=== PATIENT | female | born 1975 | race Caucasian/White ===

== ENCOUNTER → 2016-05-23 | Outpatient (CLI) | payer OTHER ==
[2016-05-23 18:55] LABS: BASO % 0.3 %; BASO ABS # 0.03 K/uL (0-0.2); COMPLETE YES; EOS % 0.7 %; HEMATOCRIT 35.8 % (37-47); IG% 0.1 %; LYMPH % 27.4 %; LYMPH ABS # 2.93 K/uL (1.2-3.4); MEAN CELL VOLUME 84.8 fL (80-100); MEAN CORPUSCULAR HEMOGLOBIN 28.2 pg (25-34); MEAN CORPUSCULAR HGB CONC 33.2 g/dl (32-36); MEAN PLATELET VOLUME 11.5 fL (7.4-10.4); NEUT % 64.5 %; PLATELET COUNT 345 K/uL (130-400); RED BLOOD COUNT 4.22 M/uL (4.2-5.4); WHITE BLOOD COUNT 10.69 K/uL (4.8-10.8)
[2016-05-23 19:05] LABS: ALT/SGPT 19 U/L (12-78); BLOOD UREA NITROGEN 14 mg/dl (7-18); BUN/CREATININE RATIO 19.9 (10-20); CALCIUM 9.3 mg/dl (8.5-10.1); CARBON DIOXIDE 23 mmol/L (21-32); CHLORIDE 106 mmol/L (98-107); CHOLESTEROL 184 mg/dl (0-200); GLUCOSE 113 mg/dl (70-99); POTASSIUM 3.8 mmol/L (3.5-5.1); SODIUM 140 mmol/L (136-145)
[2016-05-23 19:08] LABS: ALB/GLOB RATIO 0.9 (0.9-2); ALKALINE PHOSPHATASE 67 U/L (45-117); AST/SGOT 16 U/L (15-37); CHOLESTEROL/HDL RATIO 4.5; HDL CHOLESTEROL 41 mg/dl; LDL CHOLESTEROL CALCULATED 111 mg/dl; TRIGLYCERIDES 158 mg/dl (0-150); VERY LOW DENSITY LIPOPROT CALC 32 mg/dl
[2016-05-24 06:21] LABS: ESTIMATED AVERAGE GLUCOSE 140 mg/dl; HA1C FLAG Normal (Normal)
== END | disposition home or self-care (01) ==
LOC: C.LABSPEC 10:58
PROVIDERS: ATTEND Family Medicine
DX: E11.9 Type 2 diabetes mellitus without complications (principal); R51 Headache; R10.13 Epigastric pain

== ENCOUNTER 2022-03-03 18:12 | Observation (INO) ==
[2022-03-03 19:39] LABS: Basophils % (auto) 0.7 %; Eosinophils # (auto) 0.07 K/uL (0-0.50); Eosinophils % (auto) 0.5 %; Hematocrit (blood only) 37.3 % (34.1-44.9); Hemoglobin 12.1 g/dl (12.0-16.0); Immature Granulocytes # (auto) 0.04 K/uL (0.00-0.02); Immature Granulocytes % (auto) 0.3 %; Lymphocytes # (auto) 3.28 K/uL (1.2-3.4); Lymphocytes % (auto) 23.5 %; Mean Corpuscular Hemoglobin 25.5 pg (25.0-34.0); Mean Corpuscular Hgb Conc 32.4 g/dL (32.0-36.0); Mean Corpuscular Volume 78.5 fL (80.0-100.0); Mean Platelet Volume 10.5 fL (9.4-12.3); Monocytes # (auto) 0.77 K/uL (0.24-0.82); Monocytes % (auto) 5.5 %; Neutrophils # (auto) 9.68 K/uL (1.4-6.5); Neutrophils % (auto) 69.5 %; Platelet Count 479 K/uL (130-400); RDW Coefficient of Variation 13.8 % (11.5-14.5); RDW Standard Deviation 39.2 fL (36.4-46.3); Red Blood Count 4.75 M/uL (3.93-5.22); White Blood Count 13.94 K/ul (4.8-10.8)
[2022-03-03 20:03] LABS: Albumin Globulin Ratio 1.1 (0.9-2); Albumin Level 4.4 gm/dl (3.4-5.0); BUN Creatinine Ratio 16.2 (10-20); Bilirubin,Total 0.3 mg/dl (0.2-1.0); Calcium 9.6 mg/dl (8.5-10.1); Creatinine Clr Calc Pharmacy 121.7 ml/min; Est GFR (African American) 122.4 ml/min; Est GFR (Non-African American) 105.6 ml/min; Globulin 3.9 gm/dl (2.5-4.0); Potassium 4.1 mmol/L (3.5-5.1); Total Protein 8.3 gm/dl (6.0-8.3)
[2022-03-03 20:06] LABS: Troponin I High Sensitivity 2.5 pg/ml (0-14)
[2022-03-03 20:17] LABS: Partial Thromboplastin Time 26.9 Seconds (21.0-31.0); Prothrombin Time 10.6 Seconds (9.0-12.0)
[2022-03-03] MEDS ORDERED: LABETALOL HCL IV 5 MG/ML 20ML IV STA (21:08)
--- NOTE | 2022-03-03 21:09 | Emergency Department Note ---
Impression & Plan Chest pain ADMIT ED Provider Note HPI: The patient is a 46-year-old female with history of type 2 diabetes, hypertension, hyperlipidemia, obesity, presents emergency department chief complaint of chest pain. Patient states that she has had intermittent left- sided chest pain throughout the day today that is atypical in nature, states it does not worsen with exertion. On arrival here to the ED the patient is hypertensive but otherwise in no acute distress on my initial evaluation, she is saturating well on room air ROS: -Cardio: Chest pain *10 point review systems was conducted and is otherwise negative unless stated above *Outpatient medications and allergy history reviewed PE: General: Alert, obese HEENT: Normocephalic, trachea midline Eyes: Extraocular eye movement is intact, no scleral erythema Pulmonary: Clear to auscultation bilaterally, no wheezing Cardio: Regular rate and rhythm GI: Abdomen is soft, nontender : No suprapubic tenderness MSK: No evidence of trauma or malformation of the extremities, no edema Skin: No evidence of rash Neuro: Alert, no focal deficits Psychiatric: Cooperative tenterer: - An order was placed for continuous cardiac monitoring - Patient was noted to be in sinus rhythm with a rate of 95 EKG: Rate: 102 Rhythm: Sinus tachycardia Intervals: Within normal limits ST changes: No ST elevation Time: 19:08 CTA CHEST: No pulmonary embolus. No aortic aneurysm or dissection. Interseptal thickening is concerning for pulmonary edema. No consolidation. The heart size is within normal limits. No pathologically enlarged lymph nodes. No fracture. Heterogeneous thyroid with presumed nodules measuring up to 1.7 cm. Recommend further evaluation with dedicated thyroid ultrasound on a nonemergent basis. Radiologist: Roxana Dominguez MD Interventions provided in ED: -IV labetalol, aspirin Medical Decision Making: Patient presented to the emergency department with a chief complaint of left- sided chest pain. On arrival here to the ED she is hypertensive but otherwise in no acute distress. Initial troponin is negative, EKG does not show any acute ischemic changes. CT angiography of the chest was obtained given the patient's chest pain and hypertension, this does not show any evidence of dissection or pulmonary embolism. On my reassessment the patient states her pain is improved, I discussed admission versus discharge with the patient and given her high risk profile including obesity, hypertension, hyperlipidemia, diabetes, and family history of heart disease, I do feel that she warrants admission for further management. Patient is in agreement. Case was discussed with the on-call hospitalist for [facility], Dr. Burnette, and the patient was admitted in stable condition for further care. Patient was given aspirin prior to admission. Diagnosis: 1. Chest pain, acute 2. Hypertension, established 3. Hyperglycemia in the setting of type 2 diabetes without DKA Disposition: Admission Dennis Jones DO Emergency Medicine Past Med/Surg History Medical History Dyslipidemia GERD (gastroesophageal reflux disease) Hypertension Type 2 diabetes mellitus Surgical History S/P cholecystectomy Family History Mother Diabetes Heart disease Hypertension Father Hypertension Myocardial infarction Brother Hypertension Heart disease Social History Smoking Status: Never smoker Preferred Language: Persian Feels Safe at Home: Yes Allergies Allergies Allergy/AdvReac Type Severity Reaction Status Date / Time Iodinated Contrast Media AdvReac Unknown Rash Verified 03/03/22 23:53 Home Meds Home Medications Medication Instructions Recorded Confirmed acetaminophen 500 mg tablet 1,000 mg PO Q6H PRN Fever Or Pain 11/25/19 03/03/22 albuterol sulfate 90 mcg/actuation 2 puffs inhalation Q4H PRN 11/25/19 03/03/22 aerosol inhaler (Ventolin HFA) Shortness Of Breath Or Wheezing atorvastatin 20 mg tablet 20 mg PO HS 11/25/19 03/03/22 lisinopril 20 mg tablet 20 mg PO QAM 11/25/19 03/03/22 menthol 4 % topical gel (Biofreeze 1 appln topical DAILY PRN Pain 11/25/19 03/03/22 (menthol)) omeprazole 40 mg capsule,delayed 40 mg PO QPM 11/25/19 03/03/22 release metformin 500 mg tablet,extended 1,000 mg PO BID 01/25/22 03/03/22 release 24 hr Previous Rx's Medication Instructions Recorded magnesium chloride 71.5 mg 71.5 mg PO BID #60 tabs 08/19/21 (magnesium chloride) tablet,delayed release (Slow-Mag) Results & Data (ED) Vital Signs Vital Signs - 24 hr 03/03/22 18:55 03/03/22 20:47 03/03/22 20:47 Temperature 36.5 C Temperature Source Temporal Artery Scan Pulse Rate 96 H Pulse Rate [Right Finger] 94 H Respiratory Rate 18 16 Respiratory Effort / Characteristics Respiratory Depth Normal Blood Pressure 149/91 H Blood Pressure [Right Arm] 194/117 H Blood Pressure Mean 110 Blood Pressure Mean [Right Arm] 142 Pulse Oximetry 100 97 Oxygen Delivery Method Room Air Room Air Room Air Sepsis New/Unexplained Change in Mental Status N/A Sepsis Action Taken by Nursing No Action Required Pulse Oximetry Post Tiitration 97 03/03/22 20:47 03/03/22 22:18 03/04/22 00:00 Temperature Temperature Source Pulse Rate Pulse Rate [Right Finger] 81 98 H Respiratory Rate 16 Respiratory Effort / Characteristics Non-Labored Respiratory Depth Normal Blood Pressure Blood Pressure [Right Arm] 182/125 H 156/110 H Blood Pressure Mean Blood Pressure Mean [Right Arm] 144 125 Pulse Oximetry 97 97 96 Oxygen Delivery Method Room Air Room Air Room Air Sepsis New/Unexplained Change in Mental Status Sepsis Action Taken by Nursing Pulse Oximetry Post Tiitration Laboratory Data Result diagrams: 03/03/22 19:08 03/03/22 19:08 Lab Results 03/03/22 03/03/22 03/03/22 Range/Units 19:08 19:08 19:08 WBC 13.94 H (4.8-10.8) K/ul RBC 4.75 (3.93-5.22) M/uL Hgb 12.1 (12.0-16.0) g/dl Hct 37.3 (34.1-44.9) % MCV 78.5 L (80.0-100.0) fL MCH 25.5 (25.0-34.0) pg MCHC 32.4 (32.0-36.0) g/dL RDW Std Deviation 39.2 (36.4-46.3) fL RDW Coeff of Brad 13.8 (11.5-14.5) % Plt Count 479 H (130-400) K/uL MPV 10.5 (9.4-12.3) fL Immature Gran % (Auto) 0.3 % Neut % (Auto) 69.5 % Lymph % (Auto) 23.5 % [place] % (Auto) 5.5 % Eos % (Auto) 0.5 % Baso % (Auto) 0.7 % Neut # (Auto) 9.68 H (1.4-6.5) K/uL Lymph # (Auto) 3.28 (1.2-3.4) K/uL [place] # (Auto) 0.77 (0.24-0.82) K/uL Eos # (Auto) 0.07 (0-0.50) K/uL Baso # (Auto) 0.10 (0-0.2) K/uL Immature Gran # (Auto) 0.04 H (0.00-0.02) K/uL PT 10.6 (9.0-12.0) Seconds INR 1.0 (0.9-1.1) APTT 26.9 (21.0-31.0) Seconds PTT Ratio 1.0 Sodium 134 L (136-145) mmol/L Potassium 4.1 (3.5-5.1) mmol/L Chloride 99 (98-107) mmol/L Carbon Dioxide 24 (21-32) mmol/L Anion Gap 11 (3-11) BUN 11 (6-23) mg/dl Creatinine 0.68 (0.6-1.2) mg/dl Est Cr Clr Drug Dosing 121.7 ml/min Est GFR ( Amer) 122.4 ml/min Est GFR (Non-Af Amer) 105.6 ml/min BUN/Creatinine Ratio 16.2 (10-20) Glucose 194 H (70-99(Fasting)) mg/dl Calcium 9.6 (8.5-10.1) mg/dl Total Bilirubin 0.3 (0.2-1.0) mg/dl AST 16 (13-39) U/L ALT 17 (7-52) U/L Alkaline Phosphatase 82 (34-104) U/L Troponin I High Sens 2.5 (0-14) pg/ml Total Protein 8.3 (6.0-8.3) gm/dl Albumin 4.4 (3.4-5.0) gm/dl Globulin 3.9 (2.5-4.0) gm/dl Albumin/Globulin Ratio 1.1 (0.9-2) SARS-CoV-2, RNA, NAAT (NEGATIVE) 03/03/22 Range/Units 23:53 WBC (4.8-10.8) K/ul RBC (3.93-5.22) M/uL Hgb (12.0-16.0) g/dl Hct (34.1-44.9) % MCV (80.0-100.0) fL MCH (25.0-34.0) pg MCHC (32.0-36.0) g/dL RDW Std Deviation (36.4-46.3) fL RDW Coeff of Brad (11.5-14.5) % Plt Count (130-400) K/uL MPV (9.4-12.3) fL Immature Gran % (Auto) % Neut % (Auto) % Lymph % (Auto) % [place] % (Auto) % Eos % (Auto) % Baso % (Auto) % Neut # (Auto) (1.4-6.5) K/uL Lymph # (Auto) (1.2-3.4) K/uL [place] # (Auto) (0.24-0.82) K/uL Eos # (Auto) (0-0.50) K/uL Baso # (Auto) (0-0.2) K/uL Immature Gran # (Auto) (0.00-0.02) K/uL PT (9.0-12.0) Seconds INR (0.9-1.1) APTT (21.0-31.0) Seconds PTT Ratio Sodium (136-145) mmol/L Potassium (3.5-5.1) mmol/L Chloride (98-107) mmol/L Carbon Dioxide (21-32) mmol/L Anion Gap (3-11) BUN (6-23) mg/dl Creatinine (0.6-1.2) mg/dl Est Cr Clr Drug Dosing ml/min Est GFR ( Amer) ml/min Est GFR (Non-Af Amer) ml/min BUN/Creatinine Ratio (10-20) Glucose (70-99(Fasting)) mg/dl Calcium (8.5-10.1) mg/dl Total Bilirubin (0.2-1.0) mg/dl AST (13-39) U/L ALT (7-52) U/L Alkaline Phosphatase (34-104) U/L Troponin I High Sens (0-14) pg/ml Total Protein (6.0-8.3) gm/dl Albumin (3.4-5.0) gm/dl Globulin (2.5-4.0) gm/dl Albumin/Globulin Ratio (0.9-2) SARS-CoV-2, RNA, NAAT NEGATIVE (NEGATIVE) Administered Medications Discontinued Medications Aspirin (Aspirin Chew 324 Mg) 324 mg PO NOW STA Stop: 03/03/22 23:23 Last Admin: 03/03/22 23:52 Dose: 324 mg Documented By: MUNIR Diphenhydramine HCl (Diphenhydramine 50 Mg/Ml Vial) 25 mg IV NOW STA Stop: 03/03/22 21:24 Last Admin: 03/03/22 21:29 Dose: 25 mg Documented By: PABLITO Ioversol (Optiray 320 500ml) 113 ml IV ONCE ONE Stop: 03/03/22 22:01 Last Admin: 03/03/22 22:01 Dose: 113 ml Documented By: IRVING Labetalol HCl (Labetalol Hcl Iv 5 Mg/Ml 20ml) 10 mg IV NOW STA Stop: 03/03/22 21:09 Last Admin: 03/03/22 21:12 Dose: 10 mg Documented By: PABLITO Co-signed By: AROLDO Lisinopril (Lisinopril 20 Mg Tab) 20 mg PO NOW STA Stop: 03/03/22 23:38 Last Admin: 03/04/22 00:05 Dose: 20 mg Documented By: MUNIR Methylprednisolone (Methylprednisolone 125 Mg/2 Ml Vial) 125 mg IV NOW STA Stop: 03/03/22 21:24 Last Admin: 03/03/22 21:29 Dose: 125 mg Documented By: PABLITO Discharge Plan Visit Data Chief Complaint: Cardiac Assessment Stated Complaint: CHEST PAIN AND PALPITATIONS ED Provider: Dennis Jones Discharge Problem: Chest pain Patient Disposition: Admitted As Inpatient Forms Stand Alone Forms: [facility] Prescriptions Prescriptions: No Action Slow-Mag 71.5 mg tablet,delayed release (DR/EC) 71.5 mg PO BID Qty: 60 5RF Biofreeze (menthol) 4 % gel 1 appln TOP DAILY PRN (Reason: Pain) lisinopril 20 mg tablet 20 mg PO QAM albuterol sulfate [Ventolin HFA] 90 mcg/actuation HFA aerosol inhaler 2 puffs INH Q4H PRN (Reason: Shortness Of Breath Or Wheezing) acetaminophen 500 mg tablet 1,000 mg PO Q6H PRN (Reason: Fever Or Pain) atorvastatin 20 mg tablet 20 mg PO HS omeprazole 40 mg capsule,delayed release(DR/EC) 40 mg PO QPM metformin 500 mg tablet extended release 24 hr 1,000 mg PO BID Referrals Referrals: Margarita Tsai DO [Primary Care Provider] -
[2022-03-03] MEDS ORDERED: diphenhydrAMINE 50 MG/ML VIAL IV STA (21:23)
[2022-03-03] MEDS ORDERED: methylPREDNISolone 125 MG/2 ML VIAL IV STA (21:23)
[2022-03-03] MEDS ORDERED: OPTIRAY 320 500ml IV ONE (22:00)
[2022-03-03] MEDS ORDERED: ASPIRIN CHEW 324 MG PO STA (23:22)
[2022-03-03] MEDS ORDERED: lisinopril 20 MG TAB PO STA (23:37)
[2022-03-04 00:29] LABS: Magnesium 1.3 mg/dl (1.7-2.4)
[2022-03-04 00:32] LABS: Troponin I High Sensitivity 2.5 pg/ml (0-14)
--- NOTE | 2022-03-04 01:19 | History & Physical Report ---
Date of Service March 04, 2022 Assessment & Plan (1) Chest pain: Plan: Possibly secondary to uncontrolled blood pressure hyperlipidemia, on statin Rx DM2 on oral medications, suboptimal control as of recent hemoglobin A1c of 9.3 last October 2021 pulmonary sarcoidosis, no recent outpatient specialist follow-up hx orthostatic hypotension as per records, symptoms not as troublesome of late as per patient Thyroid nodules on incidental finding on initial CT read OBS PCU Titrate home lisinopril Cardiology consult Re: Chest pain, uncontrolled BP (Patient known to [facility] Basal bolus insulin, ISS BG goal 1 10-1 40, carb count coverage Check TSH with a.m. labs, outpatient thyroid ultrasound for thyroid nodules DVT prophylaxis per Lovenox subcu Full code Text document was generated using Percolate voice recognition software. It may contain grammatical or spelling errors. Kindly contact undersigned for clarification of any documentation item in question. History of Present Illness Chief Complaint: Chest pain Primary Care Provider: Margarita Tsai DO History obtained from patient, family, and records. Medical history significant for hypertension, hyperlipidemia, DM2 on oral medications, sarcoidosis, orthostatic hypotension as per records, chronic left shoulder pain from chronic impingement syndrome. Yesterday, patient noted achy left-sided chest pain going to her left arm. No cough, some shortness of breath. Different from usual shoulder pain. Patient compliant with home medications. Does not check blood pressure at home. No headache symptoms. Chest pain improved after Aspirin administration. SBP noted to be 190s at some point during ER stay. Patient currently comfortable. Medical History as above Negative stress echo July 2020 Surgical History : Cholecystectomy Family History : Heart disease, DM, stroke Personal/Social history : Non-smoker, no EtOH intake, store employee Allergies Allergy/AdvReac Type Severity Reaction Status Date / Time Iodinated Contrast Media AdvReac Unknown Rash Verified 03/03/22 23:53 Home Medications Medication Instructions Recorded Confirmed Type acetaminophen 500 mg tablet 1,000 mg PO Q6H PRN Fever Or Pain 11/25/19 03/03/22 History albuterol sulfate 90 mcg/actuation 2 puffs inhalation Q4H PRN 11/25/19 03/03/22 History aerosol inhaler (Ventolin HFA) Shortness Of Breath Or Wheezing atorvastatin 20 mg tablet 20 mg PO HS 11/25/19 03/03/22 History lisinopril 20 mg tablet 20 mg PO QAM 11/25/19 03/03/22 History menthol 4 % topical gel (Biofreeze 1 appln topical DAILY PRN Pain 11/25/19 03/03/22 History (menthol)) omeprazole 40 mg capsule,delayed 40 mg PO QPM 11/25/19 03/03/22 History release magnesium chloride 71.5 mg 71.5 mg PO BID #60 tabs 08/19/21 03/03/22 Rx (magnesium chloride) tablet,delayed release (Slow-Mag) metformin 500 mg tablet,extended 1,000 mg PO BID 01/25/22 03/03/22 History release 24 hr Past Med/Surg History Medical History Dyslipidemia GERD (gastroesophageal reflux disease) Hypertension Type 2 diabetes mellitus Surgical History S/P cholecystectomy Family History Mother Diabetes Heart disease Hypertension Father Hypertension Myocardial infarction Brother Hypertension Heart disease Social History Smoking Status: Never smoker Hx Alcohol Use: No Hx Substance Use: No Preferred Language: Maltese Communication Ability: Effective Director Of Outpatient Services Required: No Beliefs That Will Affect Care: None Current Living Situation: Family Other Information That Helps Us Care for You: No Feels Safe at Home: Yes Safety Concerns: Feels Safe At This Time Assistive Devices: None Review of Systems Review of Systems: As per HPI, all other systems reviewed and negative Physical Exam Physical Exam: GENERAL: Slightly uncomfortable, morbidly obese, pleasant, no respiratory distress SKIN: Normal color, warm HEENT: [place] palpebral conjunctivae, no ptosis, dry buccal mucosa NECK : Supple, short neck, no tenderness CHEST : CTA, no tenderness HEART : RRR, no obvious murmurs ABDOMEN: Some distention, nontender EXTREMITIES : No LE swelling/tenderness, chronic left shoulder tenderness NEUROLOGIC : Coherent, no facial asymmetry, no other gross focality Results & Data Results & Data ([facility]) Vital Signs (Past 12 Hours) Vital Signs Temp Pulse Pulse Resp BP BP Pulse Ox 03/04/22 00:00 98 H 16 156/110 H 96 03/03/22 22:18 81 182/125 H 97 03/03/22 20:47 97 03/03/22 20:47 94 H 16 194/117 H 97 03/03/22 20:47 03/03/22 18:55 36.5 C 96 H 18 149/91 H 100 O2 Del Method 03/04/22 00:00 Room Air 03/03/22 22:18 Room Air 03/03/22 20:47 Room Air 03/03/22 20:47 Room Air 03/03/22 20:47 Room Air 03/03/22 18:55 Room Air Laboratory Results Laboratory Results WBC 13.94 K/ul (4.8-10.8) H 03/03/22 19:08 RBC 4.75 M/uL (3.93-5.22) 03/03/22 19:08 Hgb 12.1 g/dl (12.0-16.0) 03/03/22 19:08 Hct 37.3 % (34.1-44.9) 03/03/22 19:08 MCV 78.5 fL (80.0-100.0) L 03/03/22 19:08 MCH 25.5 pg (25.0-34.0) 03/03/22 19:08 MCHC 32.4 g/dL (32.0-36.0) 03/03/22 19:08 RDW Std Deviation 39.2 fL (36.4-46.3) 03/03/22 19:08 RDW Coeff of Brad 13.8 % (11.5-14.5) 03/03/22 19:08 Plt Count 479 K/uL (130-400) H 03/03/22 19:08 MPV 10.5 fL (9.4-12.3) 03/03/22 19:08 Immature Gran % (Auto) 0.3 % 03/03/22 19:08 Neut % (Auto) 69.5 % 03/03/22 19:08 Lymph % (Auto) 23.5 % 03/03/22 19:08 [place] % (Auto) 5.5 % 03/03/22 19:08 Eos % (Auto) 0.5 % 03/03/22 19:08 Baso % (Auto) 0.7 % 03/03/22 19:08 Neut # (Auto) 9.68 K/uL (1.4-6.5) H 03/03/22 19:08 Lymph # (Auto) 3.28 K/uL (1.2-3.4) 03/03/22 19:08 [place] # (Auto) 0.77 K/uL (0.24-0.82) 03/03/22 19:08 Eos # (Auto) 0.07 K/uL (0-0.50) 03/03/22 19:08 Baso # (Auto) 0.10 K/uL (0-0.2) 03/03/22 19:08 Immature Gran # (Auto) 0.04 K/uL (0.00-0.02) H 03/03/22 19:08 PT 10.6 Seconds (9.0-12.0) 03/03/22 19:08 INR 1.0 (0.9-1.1) 03/03/22 19:08 APTT 26.9 Seconds (21.0-31.0) 03/03/22 19:08 PTT Ratio 1.0 03/03/22 19:08 Sodium 134 mmol/L (136-145) L 03/03/22 19:08 Potassium 4.1 mmol/L (3.5-5.1) 03/03/22 19:08 Chloride 99 mmol/L (98-107) 03/03/22 19:08 Carbon Dioxide 24 mmol/L (21-32) 03/03/22 19:08 Anion Gap 11 (3-11) 03/03/22 19:08 BUN 11 mg/dl (6-23) 03/03/22 19:08 Creatinine 0.68 mg/dl (0.6-1.2) 03/03/22 19:08 Est Cr Clr Drug Dosing 121.7 ml/min 03/03/22 19:08 Est GFR ( Amer) 122.4 ml/min 03/03/22 19:08 Est GFR (Non-Af Amer) 105.6 ml/min 03/03/22 19:08 BUN/Creatinine Ratio 16.2 (10-20) 03/03/22 19:08 Glucose 194 mg/dl (70-99(Fasting)) H 03/03/22 19:08 Calcium 9.6 mg/dl (8.5-10.1) 03/03/22 19:08 Magnesium 1.3 mg/dl (1.7-2.4) L 03/03/22 23:54 Total Bilirubin 0.3 mg/dl (0.2-1.0) 03/03/22 19:08 AST 16 U/L (13-39) 03/03/22 19:08 ALT 17 U/L (7-52) 03/03/22 19:08 Alkaline Phosphatase 82 U/L (34-104) 03/03/22 19:08 Troponin I High Sens 2.5 pg/ml (0-14) 03/03/22 23:54 Total Protein 8.3 gm/dl (6.0-8.3) 03/03/22 19:08 Albumin 4.4 gm/dl (3.4-5.0) 03/03/22 19:08 Globulin 3.9 gm/dl (2.5-4.0) 03/03/22 19:08 Albumin/Globulin Ratio 1.1 (0.9-2) 03/03/22 19:08 SARS-CoV-2, RNA, NAAT NEGATIVE (NEGATIVE) 03/03/22 23:[address] chest initial read: No pulmonaryembolus. No aortic aneurysmor dissection. Interseptal thickening is concerning for pulmonaryedema. No consolidation. The heart size iswithin normal limits. No pathologicallyenlarged lymph nodes. No fracture. Heterogeneous thyroid with presumed nodules measuring up to 1.7 cm. Recommend further evaluation with dedicated thyroid ultrasound on a nonemergent basis EKG as per my interpretation : Rate 105, sinus tachycardia, normal axis, no ischemia (1) Chest pain Chest pain type: unspecified Qualified Code(s): R07.9 - Chest pain, unspecified
[2022-03-04] MEDS ORDERED: SODIUM CHLORIDE 0.9% 1000ML 1,000 ML IV STA (01:26)
[2022-03-04] MEDS: MAGNESIUM SULFATE / D5W 1 GM/100 ML BAG IV SCH ×2 (02:05→04:00)
[2022-03-04] MEDS ORDERED: LORazepam 0.5 MG TAB PO PRN (03:03)
[2022-03-04] MEDS ORDERED: LANTUS PER UNIT CHARGE SQ SCH ×3 (03:03→05:45)
[2022-03-04] MEDS ORDERED: GLUCAGON FOR INJ 1 MG VIAL SQ PRN (03:03)
[2022-03-04] MEDS ORDERED: CARBOHYDRATES FOR HYPOGLYCEMIA PO PRN (03:03)
[2022-03-04] MEDS ORDERED: ACETAMINOPHEN 325 MG TAB PO PRN (03:03)
[2022-03-04] MEDS ORDERED: DEXTROSE 50% 50 ML SYRINGE IV PRN (03:03)
[2022-03-04] MEDS ORDERED: MoRPHine SULFATE 4 MG/ML 1 ML CARP\\VIAL IV PRN (03:03)
[2022-03-04] MEDS ORDERED: traMADol HCL 50 MG TABLET PO PRN (03:03)
[2022-03-04] MEDS ORDERED: PROMETHAZINE HCL 12.5 MG in SODIUM CHLORIDE 0.9% 50 ML IV PRN (03:03)
[2022-03-04] MEDS ORDERED: NITROGLYCERIN SL 0.4 MG/TAB TAB SL PRN (03:03)
[2022-03-04] MEDS ORDERED: GLUCOSE 40% GEL 15 GM TUBE PO PRN (03:03)
[2022-03-04] MEDS ORDERED: GLUCOSE 10 TAB/TUBE PO PRN (03:03)
[2022-03-04] MEDS: INSULIN ASPART PER UNIT SC SCH ×3 (03:54→12:11)
[2022-03-04 06:09] LABS: Basophils # (auto) 0.03 K/uL (0-0.2); Basophils % (auto) 0.2 %; Hematocrit (blood only) 36.9 % (34.1-44.9); Hemoglobin 11.9 g/dl (12.0-16.0); Immature Granulocytes # (auto) 0.07 K/uL (0.00-0.02); Immature Granulocytes % (auto) 0.5 %; Lymphocytes # (auto) 1.33 K/uL (1.2-3.4); Lymphocytes % (auto) 9.1 %; Mean Corpuscular Hemoglobin 25.6 pg (25.0-34.0); Mean Corpuscular Hgb Conc 32.2 g/dL (32.0-36.0); Mean Corpuscular Volume 79.5 fL (80.0-100.0); Mean Platelet Volume 10.5 fL (9.4-12.3); Monocytes # (auto) 0.07 K/uL (0.24-0.82); Monocytes % (auto) 0.5 %; Neutrophils # (auto) 13.18 K/uL (1.4-6.5); Neutrophils % (auto) 89.7 %; Platelet Count 471 K/uL (130-400); RDW Coefficient of Variation 13.9 % (11.5-14.5); RDW Standard Deviation 40.1 fL (36.4-46.3); Red Blood Count 4.64 M/uL (3.93-5.22); White Blood Count 14.68 K/ul (4.8-10.8)
[2022-03-04 06:20] LABS: Partial Thromboplastin Time 27.4 Seconds (21.0-31.0)
[2022-03-04 06:43] LABS: BUN Creatinine Ratio 17.4 (10-20); Calcium 9.5 mg/dl (8.5-10.1); Chol HDL Ratio 3.7 (0-5); Creatinine Clr Calc Pharmacy 119.6 ml/min; Est GFR (African American) 121.8 ml/min; Est GFR (Non-African American) 105.1 ml/min; Magnesium 2.1 mg/dl (1.7-2.4); Potassium 3.9 mmol/L (3.5-5.1)
[2022-03-04 06:50] LABS: Thyroid Stimulating Hormone 0.226 uIu/ml (0.300-4.500)
--- NOTE | 2022-03-04 07:19 | CT Scan Report ---
CT angio chest PE protocol CT DOSE: 721.80 mGy.cm HISTORY: 46 years-old Female with PE. Acute shortness of breath with chest pain TECHNIQUE: Multiple CTA images of the chest were obtained after the intravenous administration of 113 ml Optiray. Coronal and sagittal MIPS were obtained from the axial data set and were submitted for review. All measurements were obtained according to NASCET criteria. A dose lowering technique was u tilized adhering to the principles of ALARA. COMPARISON: CT abdomen and pelvis 01/25/2022 FINDINGS: CTA: There is adequate opacification of the pulmonary arteries to the level of the segmental branches with out convincing evidence of acute pulmonary embolism. Normal thoracic aorta. The heart is normal in si ze without pericardial effusion. Mild coronary artery calcifications. CT CHEST: Heterogeneous thyroid with numerous bilateral nodules, most of which appear to be subcentimeter. Thyr oid calcifications also noted. No pathologically enlarged lymph nodes identified. Intralobular septal thickening is noted with numerous perilymphatic/centrilobular micronodules. Subpleural calcified gra nulomata are also present. No acute process of the imaged upper abdomen. Hepatic steatosis. Unremarkable soft tissues. No acute fracture identified. Right shoulder rotator cuff calcific tendinosis. IMPRESSION: 1. No pulmonary emboli identified. 2. Diffuse intralobular septal thickening with innumerable perilymphatic/centrilobular micronodules a nd subpleural calcified granulomata. Findings are nonspecific however would favor a granulomatous pro cess such as pulmonary sarcoidosis. Lymphangitic carcinomatosis could appear similarly however is con sidered less likely. 3. No pathologically enlarged lymph nodes of the chest. 4. Multinodular thyroid goiter. 5. Hepatic steatosis. ACT 112: Negative or not required by law. The above report was generated using voice recognition software. It may contain grammatical, syntax o r spelling errors. Electronically signed by: Beni Albright M.D. 03/04/2022 7:17 AM
[2022-03-04 07:21] LABS: T4 Free Thyroxine 0.87 ng/dl (0.61-1.60)
--- NOTE | 2022-03-04 08:50 | Electrocardiogram Report ---
Test Reason : Blood Pressure : / mmHG Vent. Rate : 102 BPM Atrial Rate : 102 BPM P-R Int : 118 ms QRS Dur : 086 ms QT Int : 330 ms P-R-T Axes : 026 -01 078 degrees QTc Int : 430 ms Sinus tachycardia Poor R wave progression, consider anterior AK vs. lead placement vs. LVH Abnormal ECG No previous ECGs available Confirmed by Jean-Pierre Lomax ([id number]) on 03/04/2022 8:50:18 AM Referred By: REFERRED SELF Confirmed By:Jean-Pierre Lomax
[2022-03-04] MEDS ORDERED: lisinopril 20 MG TAB PO SCH (09:00)
[2022-03-04] MEDS ORDERED: ENOXAPARIN INJ 40 MG/0.4 ML SYR SQ SCH (09:00)
[2022-03-04 10:06] LABS: Estimated Average Glucose 212 mg/dl
--- NOTE | 2022-03-04 14:00 | Cardiology Consultation ---
Date of Consultation March 04, 2022 Assessment & Plan (1) Atypical chest pain: (2) Palpitations: (3) Sinus tachycardia: (4) Type 2 diabetes mellitus: Plan 46-year-old woman with episode of very atypical chest pain (lasted seconds), benign ECG and enzymes, presently underwent stress echocardiogram which showed no inducible myocardial ischemia. Given her diabetes, reasonable to continue statin, but aspirin calculator suggests that she is sufficiently low risk for a cardiovascular event that does not require daily aspirin (particularly since she has GERD and intermittently requires steroids for her sarcoidosis). She did have an unusually brisk heart rate response to simple position change (sitting to standing) without concomitant blood pressure drop (suggesting her abrupt heart rate increase was not a reflex response to orthostatic hypotension). Of note she was moderately hypertensive on admission. Suspect much of this is due to deconditioning given her very sedentary lifestyle. However, there could be an element of autonomic insufficiency related to her diabetes or prior COVID infection (although this was 2 years ago). Would favor addition of a small amount of beta-yuly (metoprolol succinate 25 mg PO daily) to diminish subjective palpitations, reduce nonphysiologic tachycardic response to activity, and offer additive effects to her lisinopril and managing her hypertension. Okay for hospital discharge from a cardiac standpoint. Cardiology follow-up with Gus Lozada PA-C in 2 to 3 weeks (I will arrange). History of Present Illness Reason for Consultation: cp, htn Requesting Physician: Ector Sosa MD Attending Physician: Ector Sosa MD History of Present Illness 46-year-old woman with history of diabetes mellitus, hypertension, atypical chest pain syndrome, GERD, obesity, and sarcoidosis who was admitted overnight with left-sided chest/arm discomfort and increased palpitations At recent baseline, she is very sedentary and participates in minimal physical activity. At the time of an office visit 1 month ago, she had been complaining of sharp/stabbing left shoulder pain, which ultimately was felt to be musculoskeletal. Yesterday, she noted 7/10 severity central chest pain which occurred twice but lasted only 3 seconds each time. ECG and enzymes overnight were benign. Telemetry showed sinus rhythm in the 80-90 bpm range with no dysrhythmias or frequent ectopy. She just underwent a stress echocardiogram, this showed no ECG or echocardiographic evidence of myocardial ischemia at 100% maximum predicted heart rate. Of note, her resting heart rate was in the 110 bpm range and increased to 135 bpm simply upon standing (with no drop in blood pressure). BP response to activity was appropriate. She noted dyspnea early in exercise, but this did not abruptly increase and she was able to tolerate 3-1/2 minutes on a Kan protocol before the test was terminated due to fatigue. No chest pain during stress study. At the conclusion of the study, she was comfortable with no somatic complaints. Allergies Allergy/AdvReac Type Severity Reaction Status Date / Time Iodinated Contrast Media AdvReac Unknown Rash Verified 03/03/22 23:53 Home Medications Medication Instructions Recorded Confirmed Type acetaminophen 500 mg tablet 1,000 mg PO Q6H PRN Fever Or Pain 11/25/19 03/03/22 History albuterol sulfate 90 mcg/actuation 2 puffs inhalation Q4H PRN 11/25/19 03/03/22 History aerosol inhaler (Ventolin HFA) Shortness Of Breath Or Wheezing atorvastatin 20 mg tablet 20 mg PO HS 11/25/19 03/03/22 History lisinopril 20 mg tablet 20 mg PO QAM 11/25/19 03/03/22 History menthol 4 % topical gel (Biofreeze 1 appln topical DAILY PRN Pain 11/25/19 03/03/22 History (menthol)) omeprazole 40 mg capsule,delayed 40 mg PO QPM 11/25/19 03/03/22 History release magnesium chloride 71.5 mg 71.5 mg PO BID #60 tabs 08/19/21 03/03/22 Rx (magnesium chloride) tablet,delayed release (Slow-Mag) metformin 500 mg tablet,extended 1,000 mg PO BID 01/25/22 03/03/22 History release 24 hr Patient History Medical History Dyslipidemia GERD (gastroesophageal reflux disease) Hypertension Type 2 diabetes mellitus Surgical History S/P cholecystectomy Family History Mother Diabetes Heart disease Hypertension Father Hypertension Myocardial infarction Brother Hypertension Heart disease Social History Smoking Status: Never smoker Hx Alcohol Use: No Hx Substance Use: No Preferred Language: Ecuadorean Communication Ability: Effective Staff Rn Required: No Beliefs That Will Affect Care: None Current Living Situation: Family Other Information That Helps Us Care for You: No Feels Safe at Home: Yes Safety Concerns: Feels Safe At This Time Assistive Devices: None Physical Exam Physical Exam: Adult white female with BMI 41 in no distress. BP normotensive. Pulse 90 bpm and regular. Skin: no ecchymoses or generalized lesions. HEENT: unremarkable. Neck: Jugular venous pulse not elevated, no carotid bruits. Lungs: clear. No crackles or wheezing. Cardiac: regular rhythm, normal S1 and S2 no murmur or gallop. Abdomen: benign. Extremities: no edema, pulses intact. Neurologic: normal affect and conversation, nonfocal. Results & Data ([facility]) Vital Signs (Past 12 Hours) Vital Signs Temp Pulse Pulse Resp BP BP Pulse Ox 03/04/22 11:30 98.6 F 83 18 138/61 118/68 95 03/04/22 07:30 97.7 F 97 H 18 126/71 97 03/04/22 03:28 96 H 03/04/22 03:03 97.5 F L 97 H 20 114/75 96 03/04/22 02:00 99 H 16 145/83 H 98 O2 Del Method 03/04/22 11:30 03/04/22 07:30 03/04/22 03:28 03/04/22 03:03 Room Air 03/04/22 02:00 Laboratory Results Labs with sodium 134 otherwise normal electrolytes, BUN 12, creatinine 0.69. High-sensitivity troponin was 2.5 initially and on repeat as well. Diagnostic Findings ECG showed sinus tachycardia 102 bpm with poor R wave progression. Compared with 01/28/2021 ECG, no significant change. Chest CT showed evidence of pulmonary sarcoidosis, no pulmonary emboli. An event monitor from early 2021 showed sinus rhythm with sinus tachycardia and no arrhythmias. Symptoms occurred during sinus rhythm and sinus tachycardia. Stress echocardiogram August 2020 patient exercised for 3 minutes and 43 seconds on a Kan protocol achieving 96% maximum predicted heart rate with dyspnea but no chest pain and no evidence of myocardial ischemia. PG Care Time/CCT Total # of Minutes Spent Total Time Spent with Patient: Total time spent is greater than 50% in coordination of care (as documented) at patient's floor/unit and/or counseling patient: Coding Level of Care Code 77324 Inpt Consult Level 4 Diagnoses Atypical chest pain R07.89 Palpitations R00.2 Sinus tachycardia R00.0 Type 2 diabetes mellitus E11.9
--- NOTE | 2022-03-04 15:00 | XCELERA ---
[id number]
--- NOTE | 2022-03-04 15:19 | Discharge Summary ---
Date of Service March 04, 2022 Admission HPI Per Admitting Provider History obtained from patient, family, and records. Medical history significant for hypertension, hyperlipidemia, DM2 on oral medications, sarcoidosis, orthostatic hypotension as per records, chronic left shoulder pain from chronic impingement syndrome. Yesterday, patient noted achy left-sided chest pain going to her left arm. No cough, some shortness of breath. Different from usual shoulder pain. Patient compliant with home medications. Does not check blood pressure at home. No headache symptoms. Chest pain improved after Aspirin administration. SBP noted to be 190s at some point during ER stay. Patient currently comfortable. Medical History as above Negative stress echo July 2020 Surgical History : Cholecystectomy Family History : Heart disease, DM, stroke Personal/Social history : Non-smoker, no EtOH intake, store employee Admission Exam Per Admitting Provider GENERAL: Slightly uncomfortable, morbidly obese, pleasant, no respiratory distress SKIN: Normal color, warm HEENT: [place] palpebral conjunctivae, no ptosis, dry buccal mucosa NECK : Supple, short neck, no tenderness CHEST : CTA, no tenderness HEART : RRR, no obvious murmurs ABDOMEN: Some distention, nontender EXTREMITIES : No LE swelling/tenderness, chronic left shoulder tenderness NEUROLOGIC : Coherent, no facial asymmetry, no other gross focality Principal Diagnosis Chest pain rule out ACS Uncontrolled hypertension Discharge Exam GENERAL: Alert and oriented x3. NAD, on RA. Class III obese HEENT: No pallor, no icterus. Pupils equal, round and reactive to light. Oral mucosa moist. NECK: No JVD, no neck masses. HEART: S1 and S2 heard. Regular rate and rhythm. No murmur, no gallop. RESPIRATORY SYSTEM: Normal AP diameter. No accessory muscle use. No wheezing, no crackles. ABDOMEN: Soft, bowel sounds present, nontender, no distention. CENTRAL NERVOUS SYSTEM: No facial droop. Speech is clear. Obeys simple commands. Moves extremities. EXTREMITIES: No edema, no erythema seen. Discharge Data Allergies Allergy/AdvReac Type Severity Reaction Status Date / Time Iodinated Contrast Media AdvReac Unknown Rash Verified 03/03/22 23:53 Consultations 03/04/22 03:03 Consult Cardiology Routine Ordered Studies 03/03/22 21:08 CT angio chest PE protocol Stat Hospital Course (1) Chest pain: 46-year-old lady with PMH of HTN, HLD, DM2 on oral meds, sarcoidosis, orthostatic hypotension, chronic left shoulder pain from chronic impingement syndrome presented 03/03 with left-sided chest pain going to her left arm, troponin trends x2 were negative. Admitting EKG with sinus tachycardia, no acute ST or T changes. Stress test was done without any resting LV wall motion abnormalities or inducible ischemia. Cardiology evaluated the patient, metoprolol has been added. Her lisinopril dose has been increased to 30 Mg daily due to elevated blood pressure presentation. Patient advised to measure blood pressure twice a day and maintain a log to take to primary care physician so that her PCP can evaluate/manage her blood pressure medication. Patient to follow-up with cardiology in 2 to 3 weeks time. Patient will likely need blood tests including CBC/CMP/magnesium level upon PCP visit in a week time. Patient is being discharged home with following instruction at the point of discharge: Follow-up with the primary care physician within a week time and likely you will need blood test CBC/CMP/magnesium level. Your blood pressure was high while in hospital, hence your lisinopril dose has been increased to 30 Mg daily. Also metoprolol dose has been added to help with blood pressure management and also to help with the palpitation. Measure blood pressure twice a day and make a log to take to your primary care physician for further evaluation/management of your blood pressure medication. Follow-up with cardiology office in 2 to 3 weeks time. Take your medications as prescribed. Home Health Attestation I certify that this patient is under my care and that I, or a physicians multimedia production assistant working with me, had a face to-face encounter that meets the home health [id number] encounter requirements with this patient. The encounter with the patient was in whole, or in part, for the following medical condition, which is the primary reason for home health care (list medical condition): I certify that, based on my findings, the following services are medically necessary home health services: My clinical findings support the need for the above services because: Further, I certify that my clinical findings support that this patient is homebound (i.e. absences from home require considerable and taxing effort and are for medical reasons or gnosticist services or infrequently or of short duration when for other reasons) because: Certification for Home Health Services: Based on the above findings, I certify that this patient is confined to the home and needs intermittent snf care, physical therapy and/or speech therapy or continues to need occupational therapy. The patient is under my care, and I have initiated the establishment of the plan of care. This patient will be followed by a physician who will periodically review the plan of care. Total Time Total Time Spent Total Time Spent (In Minutes): 40 Discharge Plan Discharge Items Patient Disposition: Home - Self-Care Reason For Visit: CP Discharge Diagnosis: Chest pain rule out ACS Uncontrolled hypertension Activity: Resume your previous activity Non-emergency contact: Primary Care Provider Call non-emergency contact if: you have any medication questions, your symptoms worsen and your temperature is above 101 Follow-up/Referrals: Margarita Tsai DO [Primary Care Provider] - (Date & Time 03/10/2022 2:00 PM Provider LAUREN Shirley [facility] ) Diet: Carb Consistent or DM2 and Heart Healthy Addtl Attending Provider Instructions: Follow-up with the primary care physician within a week time and likely you will need blood test CBC/CMP/magnesium level. Your blood pressure was high while in hospital, hence your lisinopril dose has been increased to 30 Mg daily. Also metoprolol dose has been added to help with blood pressure management and also to help with the palpitation. Measure blood pressure twice a day and make a log to take to your primary care physician for further evaluation/management of your blood pressure medication. Follow-up with cardiology office in 2 to 3 weeks time. Take your medications as prescribed. Pending Studies at Discharge: No Stand-Alone Forms: My [facility] [place], Smoking Cessation Medications and DC Order Prescriptions: New metoprolol succinate 25 mg tablet extended release 24 hr 25 mg PO DAILY Qty: 30 0RF Continued Slow-Mag 71.5 mg tablet,delayed release (DR/EC) 71.5 mg PO BID Qty: 60 5RF Biofreeze (menthol) 4 % gel 1 appln TOP DAILY PRN (Reason: Pain) albuterol sulfate [Ventolin HFA] 90 mcg/actuation HFA aerosol inhaler 2 puffs INH Q4H PRN (Reason: Shortness Of Breath Or Wheezing) acetaminophen 500 mg tablet 1,000 mg PO Q6H PRN (Reason: Fever Or Pain) atorvastatin 20 mg tablet 20 mg PO HS omeprazole 40 mg capsule,delayed release(DR/EC) 40 mg PO QPM metformin 500 mg tablet extended release 24 hr 1,000 mg PO BID Changed lisinopril 20 mg tablet 30 mg PO QAM Qty: 60 0RF Discharge Orders: Discharge Order (Routine); Ordered 03/04/22 Ordered By: Ector Sosa Admission Data Admit Date/Time: 03/04/22 01:41 Attending Provider: Ector Sosa Admit Provider: Prince Orozco Primary Care Provider: Margarita Tsai Other Providers: Gus Lozada ; Jean-Pierre Lomax ; Lior Monk ; Mazin Kumar ; Ian Beavers ; Syed Feldman Jr ; Lui Andrade ; Muriel Canchola ; Janay Hollins ; Heri Jacobsen ; Pito Guillen ; Ke Whitlock ; Francia Huitron ; Eloisa Brody ; Jose Vega ; Darrion Field ; James Tirado ; Mazin Morton V.
[2022-03-04] MEDS ORDERED: lisinopril 10 MG TAB PO SCH (21:00)
[2022-03-04] MEDS ORDERED: PANTOprazole 40 MG TAB PO SCH (21:00)
[2022-03-04] MEDS ORDERED: ATORVASTATIN 20 MG TAB PO SCH (21:00)
== END 2022-03-04 17:24 | disposition home or self-care (01) ==
LOC: ED 18:12 → 2S 18:12